=== PATIENT | male | born 1985 | race Two or more races ===

== ENCOUNTER 2017-10-08 16:57 | Inpatient (IN) | payer MEDICAID ==
[~2017-10-08] VITALS: Ht 160 cm; Wt 119.0 kg
[2017-10-08 19:11] LABS: Eosinophils # (auto) 0 uL; Eosinophils % (auto) 0.1 % (0.0-7.0); Hematocrit 46.4 % (41.0-53.0)
[2017-10-08 19:13] LABS: Basophils # (auto) 0 uL; Basophils % (auto) 0.1 % (0.0-2.0); Hemoglobin 14.3 g/dL (13.5-17.5); Lymphocytes # (auto) 2.1 uL; Lymphocytes % (auto) 8.8 % (10.0-50.0); Mean Corpuscular Hemoglobin 23.6 pg (28.0-32.0); Mean Corpuscular Hgb Conc. 30.8 g/dL (32.0-36.0); Mean Corpuscular Volume 76.6 fL (80.0-100.0); Monocytes # (auto) 0.7 uL; Neutrophils # (auto) 20.5 uL; Platelet Count (auto) 524 10^3/uL (140-450); Red Blood Cells 6.05 10^6/uL (4.5-5.90); White Blood Cell 23.3 10^3/uL (4.4-10.8)
[2017-10-08 19:15] LABS: Red Cell Distribution Width 20.7 % (11.8-14.3)
[2017-10-08 19:34] LABS: BUN/Creatinine Ratio 10.3; Potassium 3.5 mmol/L (3.5-5.1)
[2017-10-08 19:35] LABS: Albumin 4.5 g/dL (3.4-5.0); Bilirubin, Total 0.3 mg/dL (0.2-1.0); Calcium 8.8 mg/dL (8.5-10.1); Total Protein 9.4 g/dL (6.4-8.2)
[2017-10-08] MEDS ORDERED: MORPHINE SULF INJ 2 MG/ML SYRINGE 1ML IV ONE (19:45)
[2017-10-08] MEDS ORDERED: metroNIDAZOLE 500 MG TAB PO ONE (19:45)
[2017-10-08] MEDS ORDERED: ONDANSETRON HCL 4 MG/2 ML VIAL IV ONE (19:45)
[2017-10-08] MEDS ORDERED: cefTRIAXone 1GM/10ml IVPUSH 10 ML IV ONE (19:45)
[2017-10-08] MEDS ORDERED: SODIUM CHLORIDE 0.9% 250 ML IV ONE (19:45)
[2017-10-08] MEDS ORDERED: HYDROmorphone HCL 2 MG/ML VL ONE (19:50)
[2017-10-08] MEDS ORDERED: HYDROmorphone HCL 2 MG/ML VL IV ONE ×2 (20:15→21:15)
[2017-10-08 20:53] LABS: Urine Bacteria NONE SEEN /hpf (None Seen); Urine Blood Negative /uL (Negative); Urine Mucus FEW (None Seen); Urine Specific Gravity 1.009 (1.001-1.035); Urine WBC 2 /hpf (0 - 3)
[2017-10-08] MEDS ORDERED: LEVOFLOXACIN 750MG 150 ML IV ONE (21:15)
[2017-10-08] MEDS ORDERED: diphenhdrAMINE HCL 50 MG/1 ML VL IV ONE (22:00)
[2017-10-08] MEDS ORDERED: NITROGLYCERIN 0.4 MG SL TAB SL PRN (23:45)
[2017-10-08] MEDS ORDERED: SODIUM CHLORIDE 0.9% 1,000 ML IV ONE (23:45)
[2017-10-08] MEDS ORDERED: MORPHINE SULF INJ 2 MG/ML SYRINGE 1ML IV PRN (23:45)
[2017-10-08] MEDS ORDERED: TEMAZEPAM 15 MG CAP PO PRN (23:45)
[2017-10-08] MEDS ORDERED: PANTOPRAZOLE 40 MG/10 ML VIAL IV ONE (23:45)
[2017-10-09] MEDS ORDERED: LORazepam 2MG/ML-1ML VIAL IV ONE
[2017-10-09] MEDS: HYDROmorphone HCL 2 MG/ML VL IV PRN ×6 (00:07→21:54)
[2017-10-09 00:52] LABS: INR 1.05 (0.9-1.15); Partial Thromboplastin Time 27.1 sec (22.64-33.71); Prothrombin Time 11.5 sec (9.37-12.3)
[2017-10-09] MEDS ORDERED: diphenhdrAMINE HCL 50 MG/1 ML VL IV ONE ×2 (01:45→07:00)
[2017-10-09] MEDS: SODIUM CHLORIDE 0.9% 1,000 ML IV SCH ×3 (05:28→20:28)
[2017-10-09] MEDS: metroNIDAZOLE 500MG/100ML 100 ML IV SCH ×3 (06:13→21:53)
[2017-10-09] MEDS: ONDANSETRON HCL 4 MG/2 ML VIAL IV PRN ×4 (08:04→21:54)
[2017-10-09 08:16] VITALS: BP 107/74
[2017-10-09] MEDS: cefTRIAXone 1GM/10ml IVPUSH 10 ML IV SCH (09:16)
[2017-10-09] MEDS: PANTOPRAZOLE 40 MG/10 ML VIAL IV SCH (09:17)
[2017-10-09 10:24] LABS: Basophils # (auto) 0 uL; Basophils % (auto) 0.2 % (0.0-2.0); Eosinophils # (auto) 0 uL; Hemoglobin 11.6 g/dL (13.5-17.5); Lymphocytes # (auto) 1.9 uL
[2017-10-09 10:27] LABS: Eosinophils % (auto) 0.1 % (0.0-7.0); Hematocrit 36.5 % (41.0-53.0); Lymphocytes % (auto) 13.2 % (10.0-50.0); Mean Corpuscular Hemoglobin 23.9 pg (28.0-32.0); Mean Corpuscular Hgb Conc. 31.9 g/dL (32.0-36.0); Mean Corpuscular Volume 74.9 fL (80.0-100.0); Monocytes # (auto) 0.9 uL; Neutrophils # (auto) 11.5 uL; Neutrophils % (auto) 80.5 % (37.0-80.0); Platelet Count (auto) 455 10^3/uL (140-450); Red Blood Cells 4.87 10^6/uL (4.5-5.90); White Blood Cell 14.2 10^3/uL (4.4-10.8)
[2017-10-09 10:45] LABS: Red Cell Distribution Width 20.9 % (11.8-14.3)
[2017-10-09 10:49] LABS: Potassium 3.5 mmol/L (3.5-5.1)
[2017-10-09 10:50] LABS: Albumin 3.4 g/dL (3.4-5.0); BUN/Creatinine Ratio 12.1; Bilirubin, Total 0.3 mg/dL (0.2-1.0); Calcium 7.8 mg/dL (8.5-10.1); Total Protein 7.5 g/dL (6.4-8.2)
[2017-10-09 14:16] LABS: Basophils # (auto) 0 uL; Hemoglobin 11.3 g/dL (13.5-17.5); Neutrophils # (auto) 9.8 uL
[2017-10-09 14:17] LABS: Basophils % (auto) 0.3 % (0.0-2.0); Eosinophils # (auto) 0 uL; Eosinophils % (auto) 0.3 % (0.0-7.0); Hematocrit 36.9 % (41.0-53.0); Lymphocytes # (auto) 2.2 uL; Lymphocytes % (auto) 16.7 % (10.0-50.0); Mean Corpuscular Hemoglobin 22.9 pg (28.0-32.0); Mean Corpuscular Hgb Conc. 30.8 g/dL (32.0-36.0); Mean Corpuscular Volume 74.4 fL (80.0-100.0); Monocytes % (auto) 7.4 % (0.0-12.0); Neutrophils % (auto) 75.3 % (37.0-80.0); Platelet Count (auto) 414 10^3/uL (140-450); Red Blood Cells 4.95 10^6/uL (4.5-5.90); Red Cell Distribution Width 20.7 % (11.8-14.3); White Blood Cell 13.1 10^3/uL (4.4-10.8)
[2017-10-09 16:58] VITALS: BP 141/85
[2017-10-09 18:16] LABS: Basophils # (auto) 0 uL; Eosinophils # (auto) 0 uL; Eosinophils % (auto) 0.2 % (0.0-7.0)
[2017-10-09 18:18] LABS: Basophils % (auto) 0.1 % (0.0-2.0); Hematocrit 36.9 % (41.0-53.0); Hemoglobin 11.7 g/dL (13.5-17.5); Lymphocytes # (auto) 1.4 uL; Lymphocytes % (auto) 10.6 % (10.0-50.0); Mean Corpuscular Hemoglobin 23.9 pg (28.0-32.0); Mean Corpuscular Hgb Conc. 31.8 g/dL (32.0-36.0); Mean Corpuscular Volume 75.1 fL (80.0-100.0); Monocytes # (auto) 0.9 uL; Monocytes % (auto) 6.6 % (0.0-12.0); Neutrophils # (auto) 11.2 uL; Neutrophils % (auto) 82.5 % (37.0-80.0); Nucleated Red Blood Cells % 0.1 %; Platelet Count (auto) 448 10^3/uL (140-450); Red Blood Cells 4.92 10^6/uL (4.5-5.90); White Blood Cell 13.6 10^3/uL (4.4-10.8)
[2017-10-09 18:33] LABS: Red Cell Distribution Width 20.6 % (11.8-14.3)
[2017-10-09 21:18] VITALS: BP 136/75
[2017-10-09 22:51] LABS: Basophils # (auto) 0 uL; Eosinophils # (auto) 0 uL; Lymphocytes # (auto) 1.7 uL; White Blood Cell 13.4 10^3/uL (4.4-10.8)
[2017-10-09 22:53] LABS: Basophils % (auto) 0.2 % (0.0-2.0); Eosinophils % (auto) 0.2 % (0.0-7.0); Hematocrit 37.2 % (41.0-53.0); Hemoglobin 11.7 g/dL (13.5-17.5); Lymphocytes % (auto) 12.6 % (10.0-50.0); Mean Corpuscular Hemoglobin 23.6 pg (28.0-32.0); Mean Corpuscular Hgb Conc. 31.5 g/dL (32.0-36.0); Monocytes # (auto) 0.9 uL; Monocytes % (auto) 6.4 % (0.0-12.0); Neutrophils # (auto) 10.8 uL; Neutrophils % (auto) 80.6 % (37.0-80.0); Platelet Count (auto) 456 10^3/uL (140-450); Red Blood Cells 4.95 10^6/uL (4.5-5.90)
[2017-10-09 23:02] LABS: Red Cell Distribution Width 20.4 % (11.8-14.3)
[2017-10-10] MEDS: HYDROmorphone HCL 2 MG/ML VL IV PRN ×6 (01:18→20:37)
[2017-10-10 02:30] LABS: Eosinophils # (auto) 0 uL; Neutrophils # (auto) 10.5 uL; Nucleated Red Blood Cells % 0.1 %
[2017-10-10 02:32] LABS: Basophils # (auto) 0.1 uL; Basophils % (auto) 0.5 % (0.0-2.0); Eosinophils % (auto) 0.3 % (0.0-7.0); Hematocrit 36.2 % (41.0-53.0); Hemoglobin 11.5 g/dL (13.5-17.5); Lymphocytes # (auto) 1.2 uL; Lymphocytes % (auto) 9.7 % (10.0-50.0); Mean Corpuscular Hemoglobin 23.6 pg (28.0-32.0); Mean Corpuscular Hgb Conc. 31.7 g/dL (32.0-36.0); Mean Corpuscular Volume 74.6 fL (80.0-100.0); Monocytes # (auto) 0.9 uL; Monocytes % (auto) 6.9 % (0.0-12.0); Neutrophils % (auto) 82.6 % (37.0-80.0); Platelet Count (auto) 428 10^3/uL (140-450); Red Blood Cells 4.85 10^6/uL (4.5-5.90); White Blood Cell 12.7 10^3/uL (4.4-10.8)
[2017-10-10 02:42] LABS: Red Cell Distribution Width 20.7 % (11.8-14.3)
[2017-10-10] MEDS: ONDANSETRON HCL 4 MG/2 ML VIAL IV PRN ×4 (04:22→23:08)
[2017-10-10 05:13] VITALS: BP 135/79
[2017-10-10] MEDS: metroNIDAZOLE 500MG/100ML 100 ML IV SCH ×3 (05:43→23:08)
[2017-10-10] MEDS: SODIUM CHLORIDE 0.9% 1,000 ML IV SCH ×2 (05:45→16:11)
[2017-10-10 06:28] LABS: Basophils # (auto) 0 uL; Basophils % (auto) 0.2 % (0.0-2.0); Eosinophils % (auto) 0.4 % (0.0-7.0); Hemoglobin 11.2 g/dL (13.5-17.5); Lymphocytes # (auto) 1.8 uL; Red Blood Cells 4.73 10^6/uL (4.5-5.90)
[2017-10-10 06:30] LABS: Eosinophils # (auto) 0 uL; Hematocrit 35.6 % (41.0-53.0); Lymphocytes % (auto) 14.8 % (10.0-50.0); Mean Corpuscular Hemoglobin 23.7 pg (28.0-32.0); Mean Corpuscular Hgb Conc. 31.5 g/dL (32.0-36.0); Mean Corpuscular Volume 75.3 fL (80.0-100.0); Monocytes # (auto) 0.9 uL; Monocytes % (auto) 7.8 % (0.0-12.0); Neutrophils # (auto) 9.1 uL; Neutrophils % (auto) 76.8 % (37.0-80.0); Platelet Count (auto) 389 10^3/uL (140-450); White Blood Cell 11.9 10^3/uL (4.4-10.8)
[2017-10-10 06:36] LABS: Red Cell Distribution Width 20.2 % (11.8-14.3)
[2017-10-10 06:46] LABS: BUN/Creatinine Ratio 9.5; Potassium 3.2 mmol/L (3.5-5.1)
[2017-10-10] MEDS ORDERED: INFLUENZA QUAD 2017-2018 0.5 ML SYRG IM ONE (07:00)
[2017-10-10 09:14] VITALS: BP 127/81
[2017-10-10] MEDS: cefTRIAXone 1GM/10ml IVPUSH 10 ML IV SCH (09:24)
[2017-10-10] MEDS: PANTOPRAZOLE 40 MG/10 ML VIAL IV SCH (09:24)
[2017-10-10 11:01] LABS: Basophils # (auto) 0 uL; Eosinophils # (auto) 0 uL; Lymphocytes # (auto) 1.9 uL; Neutrophils # (auto) 9.9 uL
[2017-10-10 11:03] LABS: Basophils % (auto) 0.2 % (0.0-2.0); Eosinophils % (auto) 0.2 % (0.0-7.0); Hemoglobin 11.2 g/dL (13.5-17.5); Lymphocytes % (auto) 14.6 % (10.0-50.0); Mean Corpuscular Hemoglobin 23.7 pg (28.0-32.0); Mean Corpuscular Volume 74.3 fL (80.0-100.0); Monocytes % (auto) 7.9 % (0.0-12.0); Neutrophils % (auto) 77.1 % (37.0-80.0); Platelet Count (auto) 418 10^3/uL (140-450); Red Blood Cells 4.71 10^6/uL (4.5-5.90); White Blood Cell 12.9 10^3/uL (4.4-10.8)
[2017-10-10 11:09] LABS: Red Cell Distribution Width 20.9 % (11.8-14.3)
[2017-10-10] MEDS ORDERED: POTASSIUM CHLORIDE 40 MEQ, LIDOCAINE 1% (LOCAL ANESTH.) 4 ML in SODIUM CHL 0.9% 100 ML IV ONE (11:45)
[2017-10-10] MEDS ORDERED: TPN PER PHARMACY 0 ML IV SCH (12:15)
[2017-10-10 13:00] VITALS: BP 148/87
[2017-10-10 13:28] LABS: Magnesium 2.3 mg/dL (1.6-2.6); Phosphorus 2.9 mg/dL (2.5-4.90)
[2017-10-10] MEDS ORDERED: LIDOCAINE 1% HCL (LOCAL ANESTH.) INJ 20ML MDV ID ONE (13:30)
[2017-10-10 14:22] LABS: Basophils # (auto) 0.1 uL; Basophils % (auto) 0.6 % (0.0-2.0); Eosinophils # (auto) 0 uL; Eosinophils % (auto) 0.3 % (0.0-7.0); Hematocrit 38.3 % (41.0-53.0); Hemoglobin 12.2 g/dL (13.5-17.5); Lymphocytes # (auto) 1.5 uL; Lymphocytes % (auto) 10.9 % (10.0-50.0); Mean Corpuscular Hemoglobin 23.5 pg (28.0-32.0); Mean Corpuscular Hgb Conc. 31.8 g/dL (32.0-36.0); Mean Corpuscular Volume 73.8 fL (80.0-100.0); Monocytes # (auto) 1.1 uL; Monocytes % (auto) 8.1 % (0.0-12.0); Neutrophils # (auto) 11.2 uL; Neutrophils % (auto) 80.1 % (37.0-80.0); Platelet Count (auto) 385 10^3/uL (140-450); Red Blood Cells 5.19 10^6/uL (4.5-5.90)
[2017-10-10 14:26] LABS: Red Cell Distribution Width 20.5 % (11.8-14.3)
[2017-10-10] MEDS ORDERED: AMINO ACID ELECTROLYTE INFUSIO 1,000 ML IV ONE ×2 (15:30→20:00)
[2017-10-10 17:05] VITALS: BP 126/77
[2017-10-10 20:07] LABS: Basophils # (auto) 0 uL; Eosinophils # (auto) 0 uL; Eosinophils % (auto) 0.1 % (0.0-7.0); Mean Corpuscular Hemoglobin 23.5 pg (28.0-32.0); White Blood Cell 14.9 10^3/uL (4.4-10.8)
[2017-10-10 20:10] LABS: Basophils % (auto) 0.2 % (0.0-2.0); Hematocrit 38.3 % (41.0-53.0); Hemoglobin 12.1 g/dL (13.5-17.5); Lymphocytes # (auto) 1.6 uL; Lymphocytes % (auto) 10.9 % (10.0-50.0); Mean Corpuscular Hgb Conc. 31.5 g/dL (32.0-36.0); Mean Corpuscular Volume 74.6 fL (80.0-100.0); Monocytes % (auto) 6.7 % (0.0-12.0); Neutrophils # (auto) 12.3 uL; Neutrophils % (auto) 82.1 % (37.0-80.0); Platelet Count (auto) 441 10^3/uL (140-450); Red Blood Cells 5.14 10^6/uL (4.5-5.90)
[2017-10-10 20:19] LABS: Red Cell Distribution Width 20.2 % (11.8-14.3)
[2017-10-10] MEDS: SODIUM CHLOR 0.9% PF (SALINE LOCK) 10ML VIAL IV SCH (22:00)
[2017-10-10 22:39] VITALS: BP 124/80
[2017-10-10 23:14] LABS: Eosinophils # (auto) 0 uL; Eosinophils % (auto) 0.2 % (0.0-7.0); Hematocrit 35.2 % (41.0-53.0); Lymphocytes # (auto) 1.7 uL; Mean Corpuscular Hemoglobin 23.5 pg (28.0-32.0); Monocytes # (auto) 0.9 uL
[2017-10-10 23:16] LABS: Basophils # (auto) 0.1 uL; Basophils % (auto) 0.6 % (0.0-2.0); Lymphocytes % (auto) 14.4 % (10.0-50.0); Mean Corpuscular Hgb Conc. 31.4 g/dL (32.0-36.0); Mean Corpuscular Volume 74.8 fL (80.0-100.0); Monocytes % (auto) 7.6 % (0.0-12.0); Neutrophils # (auto) 9.3 uL; Neutrophils % (auto) 77.2 % (37.0-80.0); Platelet Count (auto) 359 10^3/uL (140-450)
[2017-10-10 23:25] LABS: Red Cell Distribution Width 20.9 % (11.8-14.3)
[2017-10-11] MEDS ORDERED: DEXTROSE (50%) 50ML SYRG IV SCH
[2017-10-11] MEDS: HYDROmorphone HCL 2 MG/ML VL IV PRN ×7 (00:36→22:08)
[2017-10-11] MEDS: SODIUM CHLORIDE 0.9% 1,000 ML IV SCH ×2 (01:45→10:00)
[2017-10-11] MEDS: ONDANSETRON HCL 4 MG/2 ML VIAL IV PRN ×3 (04:54→19:57)
[2017-10-11 05:37] VITALS: BP 124/89
[2017-10-11 05:39] LABS: Basophils # (auto) 0 uL; Basophils % (auto) 0.2 % (0.0-2.0); Eosinophils # (auto) 0.1 uL; Mean Corpuscular Volume 75.1 fL (80.0-100.0); Monocytes # (auto) 0.9 uL
[2017-10-11 05:43] LABS: Eosinophils % (auto) 0.6 % (0.0-7.0); Hematocrit 35.1 % (41.0-53.0); Hemoglobin 11.2 g/dL (13.5-17.5); Lymphocytes # (auto) 2.1 uL; Lymphocytes % (auto) 19.3 % (10.0-50.0); Mean Corpuscular Hemoglobin 23.9 pg (28.0-32.0); Mean Corpuscular Hgb Conc. 31.8 g/dL (32.0-36.0); Monocytes % (auto) 8.6 % (0.0-12.0); Neutrophils # (auto) 7.7 uL; Neutrophils % (auto) 71.3 % (37.0-80.0); Platelet Count (auto) 388 10^3/uL (140-450); Red Blood Cells 4.67 10^6/uL (4.5-5.90); White Blood Cell 10.8 10^3/uL (4.4-10.8)
[2017-10-11 05:48] LABS: Red Cell Distribution Width 20.2 % (11.8-14.3)
[2017-10-11 05:58] LABS: BUN/Creatinine Ratio 10.5; Bilirubin, Total 0.4 mg/dL (0.2-1.0); Calcium 7.5 mg/dL (8.5-10.1); Magnesium 2.4 mg/dL (1.6-2.6); Phosphorus 2.2 mg/dL (2.5-4.90); Potassium 3.4 mmol/L (3.5-5.1); Total Protein 7.2 g/dL (6.4-8.2)
[2017-10-11] MEDS: ACCU-CHEK COMFORT CURVE STRIP VI SCH ×5 (06:00→23:50)
[2017-10-11] MEDS: InsuLIN REG 1unit/0.01ml Soln (100units/ml) SC SCH ×5 (06:00→23:49)
[2017-10-11] MEDS: metroNIDAZOLE 500MG/100ML 100 ML IV SCH ×3 (06:00→21:50)
[2017-10-11] MEDS ORDERED: POTASSIUM PHOSP 22MEQ(15MMOLE) in NS 100 ML IV ONE (08:30)
[2017-10-11 09:03] VITALS: BP 156/93
[2017-10-11] MEDS: PANTOPRAZOLE 40 MG/10 ML VIAL IV SCH (09:34)
[2017-10-11] MEDS: cefTRIAXone 1GM/10ml IVPUSH 10 ML IV SCH (09:34)
[2017-10-11] MEDS: SODIUM CHLOR 0.9% PF (SALINE LOCK) 10ML VIAL IV SCH ×2 (10:05→21:50)
[2017-10-11 13:00] VITALS: BP 148/86
[2017-10-11] MEDS ORDERED: POTASSIUM CHLORIDE 20 MEQ, LIDOCAINE 1% (LOCAL ANESTH.) 2 ML in SODIUM CHL 0.9% 100 ML IV ONE (14:15)
[2017-10-11 15:30] VITALS: BP 148/86
[2017-10-11 17:20] VITALS: BP 146/82
[2017-10-11] MEDS ORDERED: TPN PER PHARMACY IV NR ×10 (20:00)
[2017-10-11 22:00] VITALS: BP 147/84
[2017-10-12] MEDS: HYDROmorphone HCL 2 MG/ML VL IV PRN ×2 (01:57→08:13)
[2017-10-12 05:00] VITALS: BP 127/76
[2017-10-12] MEDS: metroNIDAZOLE 500MG/100ML 100 ML IV SCH ×2 (05:14→14:00)
[2017-10-12] MEDS: InsuLIN REG 1unit/0.01ml Soln (100units/ml) SC SCH ×2 (05:14→12:00)
[2017-10-12] MEDS: ACCU-CHEK COMFORT CURVE STRIP VI SCH ×2 (05:15→12:00)
[2017-10-12] MEDS: SODIUM CHLORIDE 0.9% 1,000 ML IV SCH (06:00)
[2017-10-12 09:00] VITALS: BP 125/73
[2017-10-12] MEDS: SODIUM CHLOR 0.9% PF (SALINE LOCK) 10ML VIAL IV SCH (10:00)
[2017-10-12 10:31] LABS: Albumin 3.3 g/dL (3.4-5.0); BUN/Creatinine Ratio 10.5; Bilirubin, Total 0.3 mg/dL (0.2-1.0); Calcium 7.9 mg/dL (8.5-10.1); Magnesium 2.5 mg/dL (1.6-2.6); Phosphorus 2.1 mg/dL (2.5-4.90); Potassium 3.5 mmol/L (3.5-5.1); Total Protein 7.5 g/dL (6.4-8.2)
[2017-10-12] MEDS: PANTOPRAZOLE 40 MG/10 ML VIAL IV SCH (10:58)
[2017-10-12] MEDS: cefTRIAXone 1GM/10ml IVPUSH 10 ML IV SCH (10:58)
[2017-10-12 13:00] VITALS: BP 129/69
[2017-10-12] MEDS ORDERED: POTASSIUM PHOSPHATE 22 MEQ in SODIUM CHL 0.9% 100 ML IV ONE (13:00)
[2017-10-12] MEDS ORDERED: TPN PER PHARMACY IV NR ×9 (20:00)
== END 2017-10-12 14:55 | disposition home health service (06) | DRG 720 ==
LOC: EDBD 16:57 → ER 17:07 → TELE 17:08 → TELE-WESTW 10-09 08:04
PROVIDERS: ADMIT Nurse Practitioner; ATTEND Internal Medicine
PROC: 02HV33Z Insertion of Infusion Device into Superior Vena Cava, Percutaneous Approach (ICD-10-PCS; 2017-10-10)
PROC: 3E0336Z Introduction of Nutritional Substance into Peripheral Vein, Percutaneous Approach (ICD-10-PCS; principal; 2017-10-12)
DX: A41.9 Sepsis, unspecified organism (principal); E44.0 Moderate protein-calorie malnutrition; Z68.42 Body mass index [BMI] 45.0-49.9, adult; K57.20 Diverticulitis of large intestine with perforation and abscess without bleeding; E66.01 Morbid (severe) obesity due to excess calories; K27.9 Peptic ulcer, site unspecified, unspecified as acute or chronic, without hemorrhage or perforation; E86.0 Dehydration; I10 Essential (primary) hypertension; Z80.0 Family history of malignant neoplasm of digestive organs; Z83.3 Family history of diabetes mellitus; Z23 Encounter for immunization; Z87.11 Personal history of peptic ulcer disease; Z90.49 Acquired absence of other specified parts of digestive tract; Z91.19 Patient's noncompliance with other medical treatment and regimen; Z88.1 Allergy status to other antibiotic agents; Z88.5 Allergy status to narcotic agent
CPT/HCPCS: 36415; 36569; 36600; 71045; 74176; 80048; 80053; 81001; 82040; 82150; 82805; 82962; 83605; 83690; 83735; 84100; 84478; 85025; 85610; 85730; 86850; 86900; 86901; 87040; 93005; 96365; 96366; 96375; 96376; C9113; J1815; J1956; J2001; J2405; J3490

== ENCOUNTER 2017-10-18 20:24 | Emergency (ER) | payer MEDICAID ==
[~2017-10-18] VITALS: Ht 172.7 cm; Wt 104.3 kg
[2017-10-18 20:47] VITALS: BP 144/72
[2017-10-18 23:03] LABS: Basophils # (auto) 0 uL; Basophils % (auto) 0.2 % (0.0-2.0); Eosinophils # (auto) 0 uL; Eosinophils % (auto) 0.1 % (0.0-7.0); Mean Corpuscular Hemoglobin 23.5 pg (28.0-32.0); Mean Corpuscular Hgb Conc. 31.9 g/dL (32.0-36.0)
[2017-10-18 23:05] LABS: Hematocrit 40.4 % (41.0-53.0); Hemoglobin 12.9 g/dL (13.5-17.5); Lymphocytes # (auto) 1.9 uL; Lymphocytes % (auto) 14.1 % (10.0-50.0); Mean Corpuscular Volume 73.7 fL (80.0-100.0); Monocytes # (auto) 0.8 uL; Monocytes % (auto) 6.1 % (0.0-12.0); Neutrophils # (auto) 10.9 uL; Neutrophils % (auto) 79.5 % (37.0-80.0); Platelet Count (auto) 543 10^3/uL (140-450); Red Blood Cells 5.48 10^6/uL (4.5-5.90); White Blood Cell 13.7 10^3/uL (4.4-10.8)
[2017-10-18 23:06] LABS: Red Cell Distribution Width 20.5 % (11.8-14.3)
[2017-10-18 23:14] LABS: Albumin 3.6 g/dL (3.4-5.0); Calcium 8.8 mg/dL (8.5-10.1)
[2017-10-18 23:19] LABS: Bilirubin, Total 0.3 mg/dL (0.2-1.0); Total Protein 8.2 g/dL (6.4-8.2)
[2017-10-18 23:23] LABS: BUN/Creatinine Ratio 6.3
[2017-10-18 23:24] LABS: Potassium 2.9 mmol/L (3.5-5.1)
== END 2017-10-19 01:30 | disposition left against medical advice (07) ==
LOC: EDBD 20:24 → ER 20:24
DX: R10.9 Unspecified abdominal pain (principal); Z53.21 Procedure and treatment not carried out due to patient leaving prior to being seen by health care provider; Z90.49 Acquired absence of other specified parts of digestive tract
CPT/HCPCS: 36415; 74176; 80053; 82150; 83690; 85025